=== PATIENT | male | born 1960 | race Caucasian/White ===

== ENCOUNTER 2019-01-12 07:50 | Inpatient (IN) | payer BC ==
[~2019-01-12 07:50] MED LIST: DESFLURANE 15 MIN
[2019-01-12] MEDS: LACTATED RINGER'S 1,000 ML IV (09:08)
[2019-01-12] MEDS ORDERED: CA CHLORIDE (GM) 10% 10 ML INJ (09:10)
[2019-01-12] MEDS ORDERED: HEPARIN 1000 UNITS/ML 10 ML INJ (09:10)
[2019-01-12] MEDS ORDERED: POLYMYXIN/BACITRACIN 1L IRRIG (09:21)
[2019-01-12] MEDS ORDERED: NALOXONE (0.4 MG/ML) INJ IV (09:30)
[2019-01-12] MEDS ORDERED: HYDROCODONE/APAP (10/325) TAB PO (09:30)
[2019-01-12] MEDS ORDERED: ACETAMINOPHEN 325 MG TAB PO (09:30)
[2019-01-12] MEDS ORDERED: DIPHENHYDRAMINE 25 MG CAP PO (09:30)
[2019-01-12] MEDS ORDERED: HYDROmorphONE 0.5 MG/0.5 ML SYG IV (09:30)
[2019-01-12] MEDS ORDERED: AL HYDROX/MG HYDROX/SIMETH 30 ML CUP PO (09:30)
[2019-01-12] MEDS ORDERED: DIPHENHYDRAMINE 50 MG INJ IV ×2 (09:30→13:00)
[2019-01-12] MEDS ORDERED: BISACODYL 10 MG SUPP PR (09:30)
[2019-01-12] MEDS ORDERED: CEPASTAT LOZENGE MT (09:30)
[2019-01-12] MEDS ORDERED: PROPOFOL 20 ML (09:40)
[2019-01-12] MEDS ORDERED: ROCURONIUM 50 MG INJ (09:41)
[2019-01-12] MEDS ORDERED: LIDOCAINE 2% (SDV) 5 ML INJ (09:41)
[2019-01-12] MEDS ORDERED: CEFAZOLIN 1 GM INJ (09:55)
[2019-01-12] MEDS ORDERED: DEXAMETHASONE 4 MG/ML 5 ML INJ (09:56)
[2019-01-12] MEDS ORDERED: ONDANSETRON 4 MG INJ (09:56)
[2019-01-12] MEDS: CEFAZOLIN 1 GM/50 ML (PMX) 50 ML IVPB ×2 (10:00→17:19)
[2019-01-12] MEDS ORDERED: morphine 10 MG INJ (10:12)
[2019-01-12] MEDS: BUPIVACAINE 0.25%/EPI (SDV) 30 ML INJ (10:19)
[2019-01-12] MEDS: THROMBIN (BOVINE) 5,000 UNIT VIAL TP (10:19)
[2019-01-12] MEDS: SURGIFOAM POWDER 1 GM KIT (10:19)
[2019-01-12] MEDS: POLYMYXIN/BACITRACIN 1L IRRIG (10:20)
[2019-01-12] MEDS ORDERED: GLYCOPYRROLATE 0.4 MG INJ (12:48)
[2019-01-12] MEDS ORDERED: NEOSTIGMINE 3 MG/3 ML SYRINGE (12:48)
[2019-01-12] MEDS ORDERED: EPHEDrine SULFATE 50 MG/5 ML SYG IV (13:00)
[2019-01-12] MEDS ORDERED: hydrALAzine 20 MG INJ IV (13:00)
[2019-01-12] MEDS ORDERED: FENTAnyl 50 MCG/ML VIAL IV ×2 (13:00)
[2019-01-12] MEDS ORDERED: HYDROmorphONE 1 MG/5 ML IV SYRINGE IV ×3 (13:00)
[2019-01-12] MEDS ORDERED: MEPERIDINE 25 MG INJ IV (13:00)
[2019-01-12] MEDS ORDERED: METOCLOPRAMIDE 10 MG INJ IV (13:00)
[2019-01-12] MEDS ORDERED: ALBUTEROL 0.083% (NEB) 2.5 MG/3 ML AMP HHN (13:00)
[2019-01-12] MEDS ORDERED: LABETALOL HCL 20MG INJ IV (13:00)
[2019-01-12] MEDS: ONDANSETRON 4 MG INJ IV ×2 (13:24→19:40)
[2019-01-12] MEDS: FENTAnyl 50 MCG/ML VIAL IV (13:25)
[2019-01-12] MEDS: METOCLOPRAMIDE 10 MG INJ IV (15:28)
[2019-01-12] MEDS: D5W-0.45 NACL + KCL 20 MEQ 1,000 ML IV ×2 (19:40→21:31)
[2019-01-12] MEDS: DOCUSATE SODIUM 100 MG CAP PO (21:30)
[2019-01-13] MEDS: CEFAZOLIN 1 GM/50 ML (PMX) 50 ML IVPB (01:40)
[2019-01-13] MEDS: D5W-0.45 NACL + KCL 20 MEQ 1,000 ML IV (05:01)
[2019-01-13 05:52] LABS: ADD MAN DIFF? NO
[2019-01-13 06:05] LABS: WHITE BLOOD COUNT 11.6 10^3/ul (4.8-10.8)
[2019-01-13 06:05] LABS: BASOPHILS % 0.1 % (0.0-2.0); HEMATOCRIT 38.2 % (42.0-52.0); HEMOGLOBIN 13.3 g/dl (14.0-18.0); LYMPHOCYTES # 1.4 10^3/ul (0.8-2.9); LYMPHOCYTES % 11.7 % (15.0-51.0); MEAN CORPUSCULAR HEMOGLOBIN 32.4 pg (29.0-33.0); MEAN CORPUSCULAR HGB CONC 34.8 g/dl (32.0-37.0); MEAN CORPUSCULAR VOLUME 92.9 fl (82.0-101.0); MEAN PLATELET VOLUME 10.8 fl (7.4-10.4); MONOCYTES % 8.7 % (0.0-11.0); NEUTROPHIL # 9.2 10^3/ul (1.6-7.5); NEUTROPHILS % 79.2 % (39.0-77.0); PLATELET COUNT 175 10^3/UL (140-415); RED BLOOD COUNT 4.11 10^6/ul (4.70-6.10); RED CELL DISTRIBUTION WIDTH 12.4 % (11.5-14.5)
[2019-01-13 06:33] LABS: ANION GAP 8 (5-13); BLOOD UREA NITROGEN 13 mg/dl (7-20); CALCIUM 8.7 mg/dl (8.4-10.2); CARBON DIOXIDE 30 mmol/L (21-31); CHLORIDE 102 mmol/L (97-110); CREATININE 0.85 mg/dl (0.61-1.24); Estimated GFR > 60 mL/min (>60); GLUCOSE 108 mg/dl (70-220); MAGNESIUM 1.9 mg/dl (1.7-2.5); POTASSIUM 3.8 mmol/L (3.5-5.1); SODIUM 140 mmol/L (135-144)
[2019-01-13] MEDS: DOCUSATE SODIUM 100 MG CAP PO (08:36)
[2019-01-13] MEDS: CYCLOBENZAPRINE 10 MG TAB PO (11:17)
[2019-01-13] MEDS: METOCLOPRAMIDE 10 MG INJ IV (11:31)
[2019-01-13] MEDS: HYDROCODONE/APAP (10/325) TAB PO (11:32)
== END 2019-01-13 14:45 | disposition home or self-care (01) | DRG 520 ==
LOC: REC 07:50 → MS1 14:06
PROC: 0SB40ZZ Excision of Lumbosacral Disc, Open Approach (ICD-10-PCS; principal; 2019-01-12 09:43)
PROC: 01NB0ZZ Release Lumbar Nerve, Open Approach (ICD-10-PCS; 2019-01-12 09:43)
PROC: 4A11X4G Monitoring of Peripheral Nervous Electrical Activity, Intraoperative, External Approach (ICD-10-PCS; 2019-01-12 09:43)
DX: M51.16 Intervertebral disc disorders with radiculopathy, lumbar region (principal); M48.07 Spinal stenosis, lumbosacral region; I25.10 Atherosclerotic heart disease of native coronary artery without angina pectoris; Z95.5 Presence of coronary angioplasty implant and graft
CPT/HCPCS: 72020; 80048; 83735; 85025; 86999; 88304; 97116; 97161; 97530